=== PATIENT | male | born 2000 | race Caucasian/White ===

== ENCOUNTER 2019-01-07 21:34 | Emergency (ER) | payer OTHER ==
[2019-01-07 22:04] VITALS: BP 137/68
--- NOTE | 2019-01-07 22:30 | UC ---
Laceration HPI - HPI Summary HPI Summary: 18 y/o male presents to the urgent care c/o cutting his ventral side of his Rt wrist on a fence 2 days ago. Pt has been applying ointment, but he thinks it is getting infected w/ mild redness around it and and yellowish drainage this morning. Pt reports pain at touch is 3/10. Pt is not sure if he is TTD w/ Tetanus vaccine. He called mother and she states he needs a booster. He can move Rt wrist and hand w/o any difficulty. Pt denies fever, numbness of tingling sensation over the Rt wrist or hand, SOB, chest pain, abdominal pain, N /V/d. - History Of Current Complaint Chief Complaint: Amber Stated Complaint: CUT ON ARM Time Seen by Provider: 01/07/19 22:27 Hx Obtained From: Patient Laceration Location: Wrist - RT wrist ventral side w/ infected laceration Mechanism Of Injury: Sharp Trauma Onset/Duration: Lasting Days - 2 days, Still Present, Worse Since - today Severity: Mild Pain Intensity: 3 Pain Scale Used: 0-10 Numeric Aggravating Factors: Other: - touch Related History: Dominant Hand Right - Allergies/Home Medications Allergies/Adverse Reactions: Allergies Allergy/AdvReac Type Severity Reaction Status Date / Time No Known Allergies Allergy Verified 01/07/19 22:03 PMH/Surg Hx/FS Hx/Imm Hx Previously Healthy: Yes Respiratory History: Asthma - Surgical History Surgical History: None - Family History Known Family History: Positive: Cardiac Disease - Social History Occupation: Student Lives: With Family Alcohol Use: Weekly Substance Use Type: Marijuana Substance Use Comment - Amount & Last Used: few times a month Smoking Status (MU): Never Smoked Tobacco - Immunization History Hx Tetanus, Diphtheria Vaccination: No - Mother requested Tdap booster Review of Systems All Other Systems Reviewed And Are Negative: Yes Constitutional: Positive: Negative Skin: Positive: Other - infected laceration Eyes: Positive: Negative ENT: Positive: Negative Respiratory: Positive: Negative Cardiovascular: Positive: Negative Gastrointestinal: Positive: Negative Genitourinary: Positive: Negative Motor: Positive: Negative Neurovascular: Positive: Negative Musculoskeletal: Positive: Negative Neurological: Positive: Negative Psychological: Positive: Negative Is Patient Immunocompromised?: No Physical Exam - Summary Physical Exam Summary: Vital Signs Reviewed: Yes General: well developed, well nourished male adolescent sitting in the examining table w/o any apparent distress Eye Exam: Normal Eyes: Positive: Conjunctiva Clear - PERRLA, EOMI, fundi grossly normal ENT: Positive: Normal ENT inspection, Hearing grossly normal, Pharynx normal, TMs normal Neck: Positive: Supple, Nontender, No Lymphadenopathy Respiratory: Positive: Chest non-tender, Lungs clear, Normal breath sounds, No respiratory distress Cardiovascular: Positive: RRR, No Murmur, Pulses Normal, Brisk Capillary Refill Abdomen Description: Positive: Nontender, No Organomegaly, Soft. Negative: CVA Tenderness (R), CVA Tenderness (L) Bowel Sounds: Positive: Present Musculoskeletal: Positive: Strength Intact, ROM Intact, No Edema Neurological: Positive: Alert, Muscle Tone Normal Psychological Exam: Normal Skin: Positive:Volar side of the Rt wrist w/ a linear superficial infected laceration about 1.5cm in size, mild surrounding erythema and swelling, mild tenderness to palpation, mild yellowish crusting over the laceration,No ecchymosis observed. FROM of RT wrist and fingers, sensation intact, capillary refill brisk, and pulses WNL. Vital Signs: Initial Vital Signs Temp 98.8 F 01/07/19 21:58 Pulse 76 01/07/19 21:58 Resp 18 01/07/19 21:58 BP 137/68 01/07/19 21:58 Pulse Ox 100 01/07/19 21:58 Laceration Course/Dx - Course/Dx Course Of Treatment: 18 y/o male presents to the urgent care c/o cutting his ventral side of his Rt wrist on a fence 2 days ago. Pt has been applying ointment, but he thinks it is getting infected w/ mild redness around it and and yellowish drainage this morning. Pt reports pain at touch is 3/10. Pt is not sure if he is UTD w/ Tetanus vaccine. He called mother and she states he needs a booster. He can move Rt wrist and hand w/o any difficulty. Pt denies fever, numbness of tingling sensation over the Rt wrist or hand, SOB, chest pain, abdominal pain, N /V/D. Hx obtained. Pt w/ small infected wound s/p superficial linear laceration in the volar side of RT wrist about 1.5cm w/ mild surrounding erythema and yellowish crusting, FROM of RT wrist on examination. Wound cleaned w/ iodine swabs. Bacitrain oint applied and wound covered w/ sterile dressing by me. First dose of keflex PO givne by the nurse. Pt tolerated well medication. Tdap ordered and applied by nurse. Pt Rx Keflex PO as directed below and advised swelling and redness doubles in size despite taking antibiotics to please go inmediately to the ER for further management. D/C instructions explained. Pt understood and agreed and left the clinic ambulating A&Ox3. - Differential Dx - Laceration/Wound Differental Diagnoses: Abrasion, Cellulitis, Laceration, Puncture Wound - Diagnosis Provider Diagnosis: Laceration of right wrist, Infected wound Discharge - Sign-Out/Discharge Documenting (check all that apply): Patient Departure - D/C home All imaging exams completed and their final reports reviewed: No Studies - Discharge Plan Condition: Stable Disposition: HOME Prescriptions: Bacitracin OINTMENT* 1 applic TOPICAL BID #1 tube Cephalexin CAP* [Keflex CAP*] 500 mg PO QID #27 cap Patient Education Materials: Laceration (ED), Acute Wound Care (ED) Referrals: [facility] [place] [facility] [Outside] - 3 Days Additional Instructions: 1-Please take full course of antibiotic to avoid resistance. Keep wound clean and dry with a sterile dressing. Apply bacitracin topical as directed 2- F/u wound check up in 2 days with your PCP or at the urgent care for removal of packing 3-. Take Ibuprofen PO q6-8hrs prn for pain or swelling. 4-If you develop fever or redness despite antibiotic please go to the ER immediately or return to the Urgent care. 5- Tdap booster was given today. - Billing Disposition and Condition Condition: STABLE Disposition: Home
[2019-01-07] MEDS: Cephalexin CAP* 500 MG PO ONE (22:44)
[2019-01-07] MEDS: Tetan/Diph/Pertus SYR(Tdap)* 0.5 ML SYR(BOOSTRIX) use SYR IM ONE (22:44)
== END 2019-01-07 23:02 | disposition home or self-care (01) ==
LOC: UCEAST 21:34
DX: S61.511A Laceration without foreign body of right wrist, initial encounter (principal); L08.9 Local infection of the skin and subcutaneous tissue, unspecified; J45.909 Unspecified asthma, uncomplicated; W45.8XXA Other foreign body or object entering through skin, initial encounter; Y92.9 Unspecified place or not applicable
CPT/HCPCS: 90471; 90715; 99202; A9270-GY; G0463

== ENCOUNTER 2019-02-09 11:47 | Emergency (ER) | payer OTHER ==
[2019-02-09] MEDS ORDERED: Ibuprofen TAB* 600 MG PO ONE (12:49)
--- NOTE | 2019-02-09 14:14 | ED ---
Upper Extremity Pain - HPI Summary HPI Summary: Patient is a 18-year-old male presenting to the ED with right hand pain. Patient states he punched a wall earlier this morning around 2 AM. He denies any numbness or tingling. He notes to swelling and ecchymosis to the right fifth metatarsal area. Able to flex and extend at the fingers, however with discomfort. No pain to the wrist. No pain to the elbow. Has never injured this area before. - History of Current Complaint Chief Complaint: EDExtremityUpper Stated Complaint: "RT HAND INJURY PER PT" Time Seen by Provider: 02/09/19 12:01 Hx Obtained From: Patient Mechanism Of Injury: Blunt Trauma Onset/Duration: Started Hours Ago Timing: Constant Severity Initially: Moderate Severity Currently: Moderate Pain Location: Hand Character: Aching Alleviating Factor(s): Nothing Related History: Dominant Hand Right - Risk Factors Non-Orthopedic Risk Factor: Negative DVT Risk Factors: Negative Compartment Syndrome Risk Factors: Pain - Allergies/Home Medications Allergies/Adverse Reactions: Allergies Allergy/AdvReac Type Severity Reaction Status Date / Time No Known Allergies Allergy Verified 02/09/19 12:01 Home Medications: Home Medications NK [No Home Medications Reported] 02/09/19 [History Confirmed 02/09/19] PMH/Surg Hx/FS Hx/Imm Hx Previously Healthy: Yes Endocrine/Hematology History: Denies: Hx Diabetes, Hx Thyroid Disease Cardiovascular History: Denies: Hx Hypertension Respiratory History: Reports: Hx Asthma Denies: Hx Chronic Obstructive Pulmonary Disease (COPD) GI History: Denies: Hx Ulcer - Immunization History Hx Pertussis Vaccination: No Immunizations Up to Date: Yes Infectious Disease History: No Infectious Disease History: Denies: Hx Hepatitis, Hx Human Immunodeficiency Virus (HIV), Traveled Outside the [place] in Last 30 Days - Family History Known Family History: Positive: Cardiac Disease - Social History Occupation: Unemployed Lives: With Family Alcohol Use: Daily Hx Substance Use: Yes Substance Use Type: Reports: Marijuana Substance Use Comment - Amount & Last Used: few times a month Smoking Status (MU): Never Smoked Tobacco Review of Systems Constitutional: Negative Negative: Fever, Chills, Fatigue Negative: Palpitations, Chest Pain Negative: Shortness Of Breath, Cough Genitourinary: Negative Positive: no symptoms reported, see HPI Positive: Arthralgia - right hand pain. Negative: Myalgia Positive: Bruising Neurological: Negative All Other Systems Reviewed And Are Negative: Yes Physical Exam Triage Information Reviewed: Yes Vital Signs On Initial Exam: Initial Vitals Temp Pulse Resp BP Pulse Ox 99.1 F 81 18 145/66 97 02/09/19 11:50 02/09/19 11:50 02/09/19 11:50 02/09/19 11:50 02/09/19 11:50 Vital Signs Reviewed: Yes Appearance: Positive: Well-Appearing, Well-Nourished Skin: Positive: Warm, Skin Color Reflects Adequate Perfusion Head/Face: Positive: Normal Head/Face Inspection Eyes: Positive: EOMI, LORIN, Conjunctiva Clear Neck: Positive: Supple, No Lymphadenopathy Respiratory/Lung Sounds: Positive: Clear to Auscultation, Breath Sounds Present Cardiovascular: Positive: RRR, Pulses are Symmetrical in both Upper and Lower Extremities Neurological: Positive: Sensory/Motor Intact, Alert, Oriented to Person Place, Time, Speech Normal Psychiatric: Positive: Normal, Affect/Mood Appropriate AVPU Assessment: Alert Procedures - Splinting right hand - ulnar gutter Hand-Made Type: orthoglass Splint: ulnar Pre-Proc Neuro Vasc Exam: normal Post-Proc Neuro Vasc Exam: normal Diagnostics - Vital Signs Vital Signs Temp Pulse Resp BP Pulse Ox 02/09/19 11:50 99.1 F 81 18 145/66 97 - Laboratory Lab Statement: Any lab studies that have been ordered have been reviewed, and results considered in the medical decision making process. Course/Dx - Course Course Of Treatment: Patient is evaluated for right hand injury. On physical examination, patient appears well, right hand with swelling, most notably to the fourth and fifth metacarpal. X-ray obtained which shows a fracture to the distal end of the fifth metacarpal. Ulnar gutter placed. Abrasion with no puncture wounds/nothing open. No evidence of open fracture. NV intact pre-and post fabricated splint. Ibuprofen given in the ED. Patient will follow-up with orthopedics next week. He is given follow-up. - Diagnoses Differential Diagnosis/HQI/PQRI: Positive: Fracture (Closed) Provider Diagnoses: Fracture of fifth metacarpal bone Discharge - Sign-Out/Discharge Documenting (check all that apply): Patient Departure Patient Received Moderate/Deep Sedation with Procedure: No - Discharge Plan Condition: Stable Disposition: HOME Patient Education Materials: Hand Fracture (ED) Referrals: Francisco Thompson MD [Medical Doctor] - No Primary Care Phys,NOPCP [Primary Care Provider] - Alis Pina MD [Medical Doctor] - Additional Instructions: Ibuprofen 600 mg 3 times daily Keep the splint applied until you follow up with orthopedics Call them tomorrow morning for an appointment Keep the splint dry until that time If you develop any worsening symptoms, return to the ED - Billing Disposition and Condition Condition: STABLE Disposition: Home
[2019-02-09 14:37] VITALS: BP 135/73
== END 2019-02-09 14:13 | disposition home or self-care (01) ==
LOC: ED 11:47
DX: S62.396A Other fracture of fifth metacarpal bone, right hand, initial encounter for closed fracture (principal); W22.09XA Striking against other stationary object, initial encounter
CPT/HCPCS: 99282; A9270-GY